=== PATIENT | male | born 1980 | race Two or more races ===

== ENCOUNTER 2018-09-05 10:31 | Outpatient (CLI) | payer BC ==
--- NOTE | 2018-09-05 13:42 | NM ---
EXAM: Nuclear medicine parathyroid scan with SPECT-CT COMPARISON: None HISTORY: Hyperparathyroidism TECHNIQUE: A nuclear medicine parathyroid scan with SPECT CT was performed using 25.8 mCi of techneti um 99m sestamibi. FINDINGS: Immediate and delayed images were performed. Uptake is seen in the thyroid and salivary glands. No focal uptake is seen adjacent to the thyroid gland to suggest a parathyroid adenoma. IMPRESSION: No evidence of parathyroid adenoma.
== END 2018-09-05 10:32 | disposition home or self-care (01) ==
LOC: NM 10:31
PROVIDERS: ATTEND Family Medicine
DX: E21.2 Other hyperparathyroidism (principal)
CPT/HCPCS: 78072; A9500

== ENCOUNTER 2020-10-04 11:56 | Outpatient (CLI) | payer BC | END 2020-10-04 11:57 | disposition home or self-care (01) | LOC: BICRAD 11:56 | PROVIDERS: ATTEND Family Medicine | DX: M25.551 Pain in right hip (principal); G89.4 Chronic pain syndrome; M16.11 Unilateral primary osteoarthritis, right hip ==